=== PATIENT | male | born 1945 | race Caucasian/White ===

== ENCOUNTER 2016-10-06 13:26 | Emergency (ER) | payer MEDICARE, OTHER ==
[~2016-10-06 13:26] MED LIST: ACTOS45 PO; ALTA5 PO; ALTACE10 MG PO; CORDARONE PO; COUMADIN6 MG PO; DEMA100 PO; PROTONIX PO; PROZAC PO; STARLIX120 PO; WARFARIN PO
[2016-10-06 14:12] LABS: ASCORBIC ACID (UR NOT ORDER) NEG (NEG); BILIRUBIN, URINE NEGATIVE (NEG); ER URINALYSIS TAT 0 Hrs 12 Mins; KETONE, URINE NEGATIVE (NEG); LEUKOCYTE ESTERASE(NOT OR LARGE (NEG); NITRITE (URINE) NEG (NEG); WBC (NOT ORDERED) (RFLEX) 176 (0-5)
[2016-10-06 14:14] LABS: BASOPHILS 0.1 %; BASOPHILS ABSOLUTE 0.01 10/3/uL (0.0-0.16); EOSINOPHILS 0.6 %; EOSINOPHILS ABSOLUTE 0.08 10/3/uL (0.0-0.53); IMMATURE GRANULOCYTES 0.4 %; IMMATURE GRANULOCYTES ABSOLUTE 0.06 10/3/uL (0.0-0.11); LYMPHOCYTES 6.3 %; LYMPHOCYTES ABSOLUTE 0.89 10/3/uL (0.67-4.30); MEAN CORPUSCULAR HEMOGLOB 28.9 pg (26.0-34.0); MEAN CORPUSCULAR VOLUME 87.7 fL (80-100); MEAN PLATELET VOLUME 9.6 fL (9.2-13.0); MONOCYTES 7.1 %; MONOCYTES ABSOLUTE 0.99 10/3/uL (0.21-1.20); NEUTROPHILS 85.5 %; NEUTROPHILS ABSOLUTE 11.99 10/3/uL (2.02-8.40); PLATELET COUNT 179 10/3/uL (150-400); RBC DISTRIBUTION WIDTH 15.7 % (12.0-16.0); RED CELL COUNT 4.39 10/6/uL (4.7-6.1)
[2016-10-06 14:15] LABS: ER CBC TAT 0 Hrs 08 Mins; HEMATOCRIT 38.5 % (40.0-51.0); HEMOGLOBIN 12.7 g/dL (13.6-17.8); MANUAL DIFF NO %
[2016-10-06 14:27] LABS: INTERNATIONAL NORMAL RATI 2.2 UNITS (-); PARTIAL THROMBO TIME 39.4 SEC (22.5-37.2)
[2016-10-06 14:29] LABS: ALBUMIN 3.7 G/DL (3.5-5.0); CALCIUM, SERUM 8.4 MG/DL (8.5-10.4); CHLORIDE, SERUM 105 MMOL/L (96-112); CO2 (CARBON DIOXIDE) 25 MMOL/L (24-34); CREATININE 1.08 MG/DL (0.70-1.30); GFR AFRICAN AMERICAN 81 ML/MIN (>=60); GFR NON AFRICAN AMERICAN 70 ML/MIN (>=60); GLOBULIN 3.7 G/DL (2.5-4.1); POTASSIUM, SERUM 3.9 MMOL/L (3.5-5.3); PROTIME (NOT ORD) 23.8 SEC (12.0-14.5); SGOT(AST) 9 U/L (5-40); SGPT(ALT) 14 U/L (5-65); TOTAL PROTEIN 7.4 G/DL (6.0-8.5)
[2016-10-06 14:31] LABS: ALKALINE PHOSPHATASE 90 U/L (45-117); BUN (BLOOD UREA NITROGEN) 19 MG/DL (6-23); GLUCOSE, SERUM 104 MG/DL (60-99); SODIUM, SERUM 141 MMOL/L (135-148); TOTAL BILIRUBIN 1.5 MG/DL (0-1.2)
== END 2016-10-06 14:45 | disposition home or self-care (01) ==
LOC: ER 13:26
PROVIDERS: Physician Assistant
DX: N39.0 Urinary tract infection, site not specified (principal); E11.9 Type 2 diabetes mellitus without complications; Z95.1 Presence of aortocoronary bypass graft; Z88.8 Allergy status to other drugs, medicaments and biological substances; Z79.01 Long term (current) use of anticoagulants; Z79.899 Other long term (current) drug therapy
CPT/HCPCS: 80053; 81001; 85025; 85610; 85730; 87077; 87086; 87186; 99283